=== PATIENT | male | born 1995 | race American Indian/Alaskan Native ===

== ENCOUNTER 2017-02-05 09:55 | Emergency (ER) | payer MEDICAID ==
[2017-02-05 10:10] VITALS: O2SAT 100
[2017-02-05] MEDS ORDERED: Sodium Chloride 0.9% 1,000 ML IV ONE (10:19)
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
[2017-02-05] MEDS ORDERED: Sodium Chloride 0.9% 1,000 ML ONE (10:35)
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
[2017-02-05 11:23] LABS: BASO % 0.2 % (0.0-2.0); EOS # 0.1 K/uL (0.0-0.7); EOS % 1.1 % (0.0-4.0); HEMATOCRIT 36.6 % (35.0-51.0); LYMPH # 0.9 K/uL (1.0-4.3); LYMPH % 6.6 % (20.0-40.0); MEAN CELL VOLUME 86.9 fL (80.0-94.0); MEAN CORPUSCULAR HEMOGLOBIN 29.4 pg (27.0-31.0); MEAN CORPUSCULAR HGB CONC 33.8 g/dL (33.0-37.0); MEAN PLATELET VOLUME 8.3 fL (7.2-11.7); MONO # 1.2 K/uL (0.0-0.8); MONO % 8.8 % (0.0-10.0); PLATELET COUNT 239 K/uL (130-400); RED CELL DISTRIBUTION WIDTH 13.4 % (11.5-14.5); WHITE BLOOD COUNT 13.4 K/uL (4.8-10.8)
[2017-02-05 11:51] LABS: AST/SGOT 28 U/L (17-59); BILIRUBIN,TOTAL 1.4 mg/dL (0.2-1.3); CARBON DIOXIDE 27 mmol/L (22-30); CHLORIDE 95 mmol/L (98-107); GFR AFRICAN-AMERICAN > 60; POTASSIUM 3.8 mmol/L (3.6-5.2); SODIUM 133 mmol/L (132-148)
[2017-02-05 11:52] LABS: ALKALINE PHOSPHATASE 70 U/L (38-126); ALT/SGPT 14 U/L (21-72); BLOOD UREA NITROGEN 11 mg/dL (9-20); GLUCOSE,RANDOM 102 mg/dL (75-110); TOTAL PROTEIN 7.8 g/dL (6.3-8.3)
[2017-02-05 11:59] LABS: EOSINOPHIL 1 % (0-4); NEUTROPHIL 85 % (50-75); TOTAL CELLS COUNTED 100
[2017-02-05 12:32] LABS: RBC URINE 11 /hpf (0-3); URINE BACTERIA RARE (<OCC); URINE BILIRUBIN NEGATIVE (NEGATIVE); URINE BLOOD NEGATIVE (NEGATIVE); URINE COLOR Amber (YELLOW); URINE GLUCOSE (UA) NORMAL (Normal); URINE KETONE 1+ mg/dL (NEGATIVE); URINE LEUKOCYTE ESTERASE 2+ Leu/uL (Negative); URINE PROTEIN 1+ mg/dL (NEGATIVE); WBC URINE 99 /hpf (0-5)
[2017-02-05 12:38] VITALS: TEMP 99.3
[2017-02-05] MEDS ORDERED: cefTRIAXone IV 1 gm in Dextros 1 GM in Dextrose 5% In Water 50 ML IVPB STA (12:58)
[2017-02-05] MEDS ORDERED: cefTRIAXone IV 1 gm in Dextros 50 ML IVPB ONE (13:12)
[2017-02-05 14:30] VITALS: BP 122/76; PULSE 98; RESP 14
== END 2017-02-05 14:31 | disposition home or self-care (01) ==
LOC: C.ER 09:55
DX: J11.00 Influenza due to unidentified influenza virus with unspecified type of pneumonia (principal); N39.0 Urinary tract infection, site not specified
CPT/HCPCS: 71020; 80053; 81001; 85025; 87086; 87491; 87591; 87804; 96361; 96365; 96375; 99284; J0696; J1885; J7040

== ENCOUNTER 2017-06-21 09:26 | Emergency (ER) | payer MEDICAID ==
[2017-06-21 09:30] VITALS: O2SAT 98
--- NOTE | 2017-06-21 09:58 | C.PDOC ---
History Of Present Illness Patient is a 21 y/o male who presents to the ED with complaints of persistent, intermittent left-sided chest pain for the last week. Patient states the pain is worse with movement, but not associated with exertion or eating. Denies taking any medications to alleviate pain. No other physical complaints at this time. PERSIST L SIDED CP X 1 WEEK. INTERMIT, WORSE W MOVEMENT. NO ASSOC W EXERTION, EATING. NO OTHER ASSOC SX. NO PAIN MEDS TRIED. EXMA NEG Time Seen by Provider: 06/21/17 09:58 Chief Complaint (Nursing): Chest Pain History Per: Patient History/Exam Limitations: no limitations Onset/Duration Of Symptoms: Days (approximately the past week) Current Symptoms Are (Timing): Still Present Exacerbating Factors: Movement. denies: Exertion Recent travel outside of the [place]: No Past Medical History Reviewed: Historical Data, Nursing Documentation, Vital Signs Vital Signs: Last Vital Signs Temp 97.9 F 06/21/17 11:00 Pulse 98 H 06/21/17 11:00 Resp 20 06/21/17 11:00 BP 110/71 06/21/17 11:00 Pulse Ox 98 06/21/17 11:27 - Medical History PMH: Asthma Surgical History: No Surg Hx Family History: States: Unknown Family Hx - Social History Hx Alcohol Use: Yes Hx Substance Use: Yes - Immunization History Hx Tetanus Toxoid Vaccination: No Hx Influenza Vaccination: No Hx Pneumococcal Vaccination: Yes (2011) Review Of Systems Constitutional: Negative for: Fever, Chills Cardiovascular: Positive for: Chest Pain Respiratory: Negative for: Shortness of Breath, SOB with Excertion Gastrointestinal: Negative for: Nausea, Vomiting Neurological: Negative for: Weakness, Numbness Physical Exam - Physical Exam Appears: Well, Non-toxic Skin: Normal Color, Warm, Dry Head: Atraumatic, Normacephalic Oral Mucosa: Moist Chest: Symmetrical Cardiovascular: Rhythm Regular, No Murmur Respiratory: Normal Breath Sounds, No Rales, No Rhonchi, No Wheezing Gastrointestinal/Abdominal: Soft, No Tenderness Extremity: Normal ROM (x4) Neurological/Psych: Oriented x3, Normal Speech, Normal Cognition ED Course And Treatment - Laboratory Results Result Diagrams: 06/21/17 10:38 06/21/17 10:38 ECG: Interpreted By Me ECG Rhythm: Sinus Tachycardia Rate From EC O2 Sat by Pulse Oximetry: 98 (room air) Pulse Ox Interpretation: Normal - Radiology CXR: Interpreted by Me CXR Interpretation: Yes: No Acute Disease Progress Note: EKG and blood work ordered; Toradol administered. Progress - Data Reviewed Data Reviewed: Lab, Diagnostic imaging, EKG, Old records Disposition Counseled Patient/Family Regarding: Studies Performed, Diagnosis, Need For Followup, Rx Given - Disposition Referrals: [facility] [Outside] [facility] [Outside] Disposition: HOME/ ROUTINE Disposition Time: 11:26 Condition: IMPROVED Prescriptions: Ibuprofen [Motrin] 600 mg PO Q6 #30 tab Instructions: Chest Wall Pain (ED) Forms: [facility] (Macedonian), Work Excuse - Clinical Impression Clinical Impression: Chest wall pain - Scribe Statement The provider has reviewed the documentation as recorded by the Scribe Argenis Lu All medical record entries made by the Scribe were at my direction and personally dictated by me. I have reviewed the chart and agree that the record accurately reflects my personal performance of the history, physical exam, medical decision making, and the department course for this patient. I have also personally directed, reviewed, and agree with the discharge instructions and disposition.
[2017-06-21 10:46] LABS: BASO % 0.4 % (0.0-2.0); EOS # 0.4 K/uL (0.0-0.7); EOS % 4.9 % (0.0-4.0); HEMATOCRIT 41.1 % (35.0-51.0); LYMPH # 2.6 K/uL (1.0-4.3); LYMPH % 30.1 % (20.0-40.0); MEAN CELL VOLUME 85.1 fL (80.0-94.0); MEAN CORPUSCULAR HEMOGLOBIN 28.7 pg (27.0-31.0); MEAN CORPUSCULAR HGB CONC 33.8 g/dL (33.0-37.0); MEAN PLATELET VOLUME 9.5 fL (7.2-11.7); MONO # 0.8 K/uL (0.0-0.8); MONO % 9.7 % (0.0-10.0); NRBC % 0.1 % (0.0-2.0); RED CELL DISTRIBUTION WIDTH 13.9 % (11.5-14.5); WHITE BLOOD COUNT 8.6 K/uL (4.8-10.8)
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
[2017-06-21 11:03] LABS: CHLORIDE 105 mmol/L (98-107); POTASSIUM 3.6 mmol/L (3.6-5.2); SODIUM 144 mmol/L (132-148)
[2017-06-21 11:06] LABS: BLOOD UREA NITROGEN 10 mg/dL (9-20); CALCIUM 9.1 mg/dl (8.6-10.4); CARBON DIOXIDE 23 mmol/L (22-30); GFR AFRICAN-AMERICAN > 60; GLUCOSE,RANDOM 101 mg/dL (75-110)
[2017-06-21 11:27] VITALS: BP 110/71; PULSE 98; RESP 20; TEMP 97.9
== END 2017-06-21 11:36 | disposition home or self-care (01) ==
LOC: C.ER 09:26
DX: R07.89 Other chest pain (principal)
CPT/HCPCS: 71020; 80048; 84484; 85025; 96374; 99285; J1885

== ENCOUNTER 2018-03-31 15:40 | Emergency (ER) | payer SELFPAY ==
[2018-03-31 15:48] VITALS: RESP 18
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
[2018-03-31 16:35] LABS: BASO # 0.1 K/uL (0.0-0.2); BASO % 0.6 % (0.0-2.0); EOS # 0.5 K/uL (0.0-0.7); EOS % 4.9 % (0.0-4.0); HEMOGLOBIN 13.4 g/dL (12.0-18.0); LYMPH # 2.5 K/uL (1.0-4.3); LYMPH % 22.1 % (20.0-40.0); MEAN CELL VOLUME 86.1 fL (80.0-94.0); MEAN CORPUSCULAR HEMOGLOBIN 28.6 pg (27.0-31.0); MEAN CORPUSCULAR HGB CONC 33.2 g/dL (33.0-37.0); MEAN PLATELET VOLUME 9.5 fL (7.2-11.7); MONO # 0.8 K/uL (0.0-0.8); MONO % 7.2 % (0.0-10.0); NEUT # 7.2 K/uL (1.8-7.0); NEUT % 65.2 % (50.0-75.0); RBC 4.69 Mil/uL (4.40-5.90); RED CELL DISTRIBUTION WIDTH 14.7 % (11.5-14.5); WHITE BLOOD COUNT 11.1 K/uL (4.8-10.8)
[2018-03-31 16:39] LABS: SQUAMOUS EPITHIAL < 1 /hpf (0-5); URINE BACTERIA RARE (<OCC); URINE BILIRUBIN NEGATIVE (NEGATIVE); URINE BLOOD NEGATIVE (NEGATIVE); URINE CLARITY Clear (Clear); URINE COLOR Yellow (YELLOW); URINE GLUCOSE (UA) NORMAL (Normal); URINE LEUKOCYTE ESTERASE NEG Leu/uL (Negative); URINE PROTEIN NEGATIVE (NEGATIVE); URINE UROBILINOGEN NORMAL mg/dL (0.2-1.0)
[2018-03-31 16:48] LABS: ALB/GLOB RATIO 1.2 (1.0-2.1); ALBUMIN 4.3 g/dL (3.5-5.0); ALT/SGPT 18 U/L (21-72); AST/SGOT 25 U/L (17-59); BLOOD UREA NITROGEN 14 mg/dL (9-20); CALCIUM 9.4 mg/dl (8.6-10.4); GFR AFRICAN-AMERICAN > 60; GFR NON-AFRICAN AMERICAN > 60
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
[2018-03-31 18:13] VITALS: BP 135/78; PULSE 86; TEMP 98.7
[2018-03-31 19:02] VITALS: O2SAT 98
== END 2018-03-31 18:14 | disposition home or self-care (01) ==
LOC: C.ER 15:40
DX: R60.0 Localized edema (principal)

== ENCOUNTER 2018-09-01 13:32 | Emergency (ER) | payer SELFPAY ==
[2018-09-01 13:49] VITALS: BP 113/70; PULSE 85; RESP 16; TEMP 97.5; O2SAT 99
--- NOTE | 2018-09-01 14:24 | C.PDOC ---
History Of Present Illness 22 year old male, whose past medical history includes asthma and pneumonia, presents to the ED for evaluation of headache and cough which began one week ago. Patient states he started experiencing runny nose yesterday. Patient reports occasional pain with breathing. He denies fever, chills. Time Seen by Provider: 09/01/18 13:50 Chief Complaint (Nursing): Cough, Cold, Congestion History Per: Patient History/Exam Limitations: no limitations Onset/Duration Of Symptoms: Days Current Symptoms Are (Timing): Still Present Additional History Per: Patient Past Medical History Reviewed: Historical Data, Nursing Documentation, Vital Signs Vital Signs: Last Vital Signs Temp 97.5 F L 09/01/18 13:45 Pulse 85 09/01/18 13:45 Resp 16 09/01/18 13:45 BP 113/70 09/01/18 13:45 Pulse Ox 99 09/01/18 13:45 - Medical History PMH: Asthma, Pneumonia Surgical History: No Surg Hx Family History: States: Unknown Family Hx - Social History Hx Alcohol Use: Yes Hx Substance Use: No - Immunization History Hx Tetanus Toxoid Vaccination: No Hx Influenza Vaccination: No Hx Pneumococcal Vaccination: Yes (2011) Review Of Systems Constitutional: Negative for: Fever, Chills ENT: Positive for: Nose Discharge Respiratory: Positive for: Cough Neurological: Positive for: Headache Physical Exam - Physical Exam Appears: Non-toxic, No Acute Distress Skin: Normal Color, Warm, Dry, No Rash Head: Atraumatic, Normacephalic Eye(s): bilateral: Normal Inspection Ear(s): Bilateral: Normal Nose: Other (congestion ) Oral Mucosa: Moist Throat: Normal, No Erythema, No Exudate Neck: Normal ROM, Supple Chest: Symmetrical, No Deformity, No Tenderness Cardiovascular: Rhythm Regular, No Murmur Respiratory: No Rales, Rhonchi (scattered), No Wheezing Gastrointestinal/Abdominal: Soft, No Tenderness Back: Normal Inspection, No CVA Tenderness Extremity: Normal ROM, No Tenderness, No Swelling Neurological/Psych: Oriented x3, Normal Speech, Normal Cognition, Normal Motor Gait: Steady ED Course And Treatment O2 Sat by Pulse Oximetry: 99 (on RA) Pulse Ox Interpretation: Normal Medical Decision Making Medical Decision Making: CXR ordered and reviewed. Claritin PO and Prednisone PO given. Disposition - Disposition Referrals: [facility] [Outside] Disposition: HOME/ ROUTINE Disposition Time: 14:38 Condition: STABLE Additional Instructions: Follow up with the medical doctor within 1-2 days. Return if worsened. Prescriptions: Loratadine [Claritin] 10 mg PO DAILY #10 tab predniSONE [Prednisone] 20 mg PO BID #10 tab Instructions: Acute Bronchitis Forms: [facility] (Belarusian) - Clinical Impression Clinical Impression: Bronchitis - PA / ASSEMBLY LOADER / Resident Statement MD/DO has reviewed & agrees with the documentation as recorded. - Scribe Statement The provider has reviewed the documentation as recorded by the Scribe (Kathy Mazariegos) All medical record entries made by the Scribe were at my direction and personally dictated by me. I have reviewed the chart and agree that the record accurately reflects my personal performance of the history, physical exam, medical decision making, and the department course for this patient. I have also personally directed, reviewed, and agree with the discharge instructions and disposition.
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
== END 2018-09-01 14:53 | disposition home or self-care (01) ==
LOC: C.ER 13:32
DX: J40 Bronchitis, not specified as acute or chronic (principal)

== ENCOUNTER 2019-01-12 18:26 | Emergency (ER) | payer SELFPAY ==
[2019-01-12 18:55] VITALS: BP 111/69; PULSE 100; RESP 99; TEMP 98.9; O2SAT 99
[2019-01-12] MEDS ORDERED: Albuterol 0.083% Inhal Sol (2.5 mg/3 mL) UD INH STA (19:55)
[2019-01-12] MEDS ORDERED: Albuterol 0.083% Inhal Sol (2.5 mg/3 mL) UD ONE (20:16)
[2019-01-12] MEDS ORDERED: Albuterol-Ipratrop 3 mg / 0.5 (3 ml) UD INH STA ×2 (20:44)
[2019-01-12] MEDS ORDERED: Albuterol-Ipratrop 3 mg / 0.5 (3 ml) UD ONE (20:46)
--- NOTE | 2019-01-12 21:03 | C.PDOC ---
History Of Present Illness 23 y/o male,w/PMhx of asthma, presents to the ER complaining of shortness of breath and left upper back pain which has been present for the past 2 days. Patient states that he has "slight" headache and cough. Patient notes that he did not take any medications. He reports that his history of asthma has not been "bothering" him for past few years. Denies having fever,chills, and chest pain. Time Seen by Provider: 01/12/19 19:28 Chief Complaint (Nursing): Headache History Per: Patient History/Exam Limitations: no limitations Onset/Duration Of Symptoms: Days Current Symptoms Are (Timing): Still Present Severity: Moderate Past Medical History Reviewed: Historical Data, Nursing Documentation, Vital Signs Vital Signs: Last Vital Signs Temp 98.9 F 01/12/19 18:49 Pulse 100 H 01/12/19 18:49 Resp 99 H 01/12/19 18:49 BP 111/69 01/12/19 18:49 Pulse Ox 99 01/12/19 18:49 - Medical History PMH: Asthma, Pneumonia Other Surgeries: Hx of surgeries Family History: States: No Known Family Hx - Social History Hx Alcohol Use: Yes Hx Substance Use: No - Immunization History Hx Tetanus Toxoid Vaccination: No Hx Influenza Vaccination: Yes Hx Pneumococcal Vaccination: No (2011) Review Of Systems Constitutional: Negative for: Fever, Chills Cardiovascular: Negative for: Chest Pain Respiratory: Positive for: Cough, Shortness of Breath, Wheezing Gastrointestinal: Negative for: Nausea, Vomiting Genitourinary: Negative for: Dysuria, Hematuria Musculoskeletal: Positive for: Back Pain Physical Exam - Physical Exam Appears: Non-toxic, No Acute Distress Skin: Normal Color, Warm, Dry Head: Atraumatic, Normacephalic Eye(s): bilateral: Normal Inspection Ear(s): Bilateral: Normal Nose: Normal Oral Mucosa: Moist Throat: Normal (no swelling or injection), No Erythema, No Exudate Neck: Supple Chest: Symmetrical Cardiovascular: Rhythm Regular Respiratory: Normal Breath Sounds, No Rales, No Rhonchi, Wheezing (bilateral wheezing), Other (moving air well, speaking in full sentences) Neurological/Psych: Oriented x3, Normal Speech ED Course And Treatment O2 Sat by Pulse Oximetry: 99 (RA) Pulse Ox Interpretation: Normal - Radiology CXR: Interpreted by Me, Viewed By Me CXR Interpretation: Yes: No Acute Disease. No: Infiltrates, Pnemothorax Medical Decision Making Medical Decision Making: Plan: --CXR --Albuterol --Prednisone PO patient had good improvement of lung sounds after receiving nebulizer treatments. he reports feeling improvement of his breathing symptoms. Disposition Counseled Patient/Family Regarding: Diagnosis, Need For Followup, Rx Given - Disposition Disposition: HOME/ ROUTINE Disposition Time: 21:21 Condition: STABLE Prescriptions: Albuterol HFA [Ventolin HFA 90 mcg/actuation (8 g)] 2 puff IH [id number] #1 inhaler Prednisone [Deltasone] 40 mg PO DAILY #6 tablet Instructions: Asthma, Adult (DC) Forms: [facility] (Tajik), General Discharge Instructions - Clinical Impression Clinical Impression: Asthma exacerbation - PA / ABALONE FISHERMAN / Resident Statement MD/DO has reviewed & agrees with the documentation as recorded. - Scribe Statement The provider has reviewed the documentation as recorded by the Jeancarlos Box Provider Attestation All medical record entries made by the Karenibe were at my direction and personally dictated by me. I have reviewed the chart and agree that the record accurately reflects my personal performance of the history, physical exam, medical decision making, and the department course for this patient. I have also personally directed, reviewed, and agree with the discharge instructions and disposition.
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
--- NOTE | 2019-01-13 23:52 | CARD ---
APPROVED REPORT Date of service: 01/12/2019 EKG Measurement Heart [id number] <Conclusion> Normal sinus rhythm Normal ECG
== END 2019-01-12 21:27 | disposition home or self-care (01) ==
LOC: C.ER 18:26
DX: J45.901 Unspecified asthma with (acute) exacerbation (principal)

== ENCOUNTER 2019-01-14 23:36 | Emergency (ER) | payer SELFPAY ==
[2019-01-14 23:49] VITALS: TEMP 98; O2SAT 94
[2019-01-15] MEDS ORDERED: Albuterol-Ipratrop 3 mg / 0.5 (3 ml) UD INH STA ×3 (00:15→01:14)
[2019-01-15] MEDS ORDERED: Albuterol-Ipratrop 3 mg / 0.5 (3 ml) UD ONE ×3 (00:35→01:27)
--- NOTE | 2019-01-15 01:54 | C.PDOC ---
History Of Present Illness 23 year old male with Hx of asthma and seasonal allergies presents with SOB for 2 days associated with cough. Patient is not on an inhaler. Denies recent illness, fever, chills, chest pain, nausea, vomiting, diarrhea, or sick contact. Chief Complaint (Nursing): ENT Problem History Per: Patient History/Exam Limitations: no limitations Onset/Duration Of Symptoms: Days (2) Current Symptoms Are (Timing): Still Present Initiating Event: Other (Seasonal allergies) Current Respiratory Medications: None Associated Symptoms: Other (Cough) Past Medical History Reviewed: Historical Data, Nursing Documentation, Vital Signs Vital Signs: Last Vital Signs Temp 98 F 01/14/19 23:40 Pulse 91 H 01/14/19 23:40 Resp 20 01/14/19 23:40 BP 118/73 01/14/19 23:40 Pulse Ox 94 L 01/14/19 23:40 - Medical History PMH: Asthma, Pneumonia Family History: States: Unknown Family Hx - Social History Hx Alcohol Use: Yes Hx Substance Use: No - Immunization History Hx Tetanus Toxoid Vaccination: No Hx Influenza Vaccination: Yes Hx Pneumococcal Vaccination: No (2011) Review Of Systems Constitutional: Negative for: Fever, Chills Cardiovascular: Negative for: Chest Pain Respiratory: Positive for: Cough, Shortness of Breath Gastrointestinal: Negative for: Nausea, Vomiting, Diarrhea Physical Exam - Physical Exam Appears: Non-toxic Skin: Normal Color, Warm Head: Atraumatic, Normacephalic Eye(s): bilateral: Normal Inspection Ear(s): Bilateral: Normal Nose: Normal Oral Mucosa: Moist Throat: Normal, No Erythema, No Exudate Neck: Normal, Supple Chest: Symmetrical, No Tenderness Cardiovascular: Rhythm Regular Respiratory: No Rales, No Rhonchi, Wheezing Neurological/Psych: Oriented x3, Normal Speech ED Course And Treatment O2 Sat by Pulse Oximetry: 94 (room air) Medical Decision Making Medical Decision Making: Duonebs x3, prednisone, and pepcid administered. Patient is resting comfortably in no acute respiratory distress, vitals are stable, will discharge home with Rx and instructions to follow up with PMD or return if symptoms worsen. Patient ve rbalizes understanding and is in agreement with plan. Patient is stable for discharge. Disposition Counseled Patient/Family Regarding: Diagnosis, Need For Followup, Rx Given - Disposition Referrals: Rebeca Rubio MD [Staff Provider] - Disposition: HOME/ ROUTINE Disposition Time: 01:46 Condition: IMPROVED Additional Instructions: Please use meds as indicated Follow u with [facility] [employer]/ PMD in 1-2 days Return to the ED if symptoms worsen Prescriptions: Albuterol HFA [Ventolin HFA 90 mcg/actuation (8 g)] 2 puff IH [id number] PRN #1 inhaler PRN Reason: Shortness Of Breath Albuterol 0.083% [Albuterol 0.083% Inhal Arlene (2.5 mg/3 ml) UD] 3 ml IH Q4 PRN #30 neb PRN Reason: Shortness Of Breath Cetirizine HCl [Zyrtec] 10 mg PO DAILY #30 tab.rapdis Famotidine [Pepcid] 20 mg PO DAILY #8 tab Mask, Face [Nebulizer Aerosol Mask Adult] 1 dev PO PRN PRN #1 dev PRN Reason: Shortness Of Breath Nebulizer [Aeroeclipse II] 1 each MC DAILY PRN #1 each PRN Reason: Shortness Of Breath Nebulizer Accessories [Sidestream Mask] 1 each MC DAILY PRN #1 each PRN Reason: Shortness Of Breath predniSONE [predniSONE Tab] 40 mg PO DAILY #8 tab Instructions: Asthma, Adult (DC), Asthma Action Plan, Rescue vs Controller Inhalers Forms: [facility] ([place]ian) - Clinical Impression Clinical Impression: Asthma exacerbation, SOB (shortness of breath) - 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 - Scribe Statement The provider has reviewed the documentation as recorded by the Scribleeann Menendez All medical record entries made by the Karenibleeann were at my direction and personally dictated by me. I have reviewed the chart and agree that the record accurately reflects my personal performance of the history, physical exam, medical decision making, and the department course for this patient. I have also personally directed, reviewed, and agree with the discharge instructions and disposition.
[2019-01-15 02:05] VITALS: BP 145/72; PULSE 95; RESP 18
== END 2019-01-15 02:05 | disposition home or self-care (01) ==
LOC: C.ER 23:36
DX: J45.901 Unspecified asthma with (acute) exacerbation (principal)